=== PATIENT | female | born 1970 | race Caucasian/White ===

== ENCOUNTER 2022-01-26 00:48 | Emergency (ER) | payer BC ==
[2022-01-26] MEDS ORDERED: Metoprolol Tartrate 5 MG/5 ML SDV IVPUSH ONE (02:17)
[2022-01-26 02:36] LABS: ANION GAP 13.7 mEq/L (7-13)
== END 2022-01-26 03:37 | disposition home or self-care (01) ==
LOC: DL.ED 00:48
DX: F41.9 Anxiety disorder, unspecified (principal); I10 Essential (primary) hypertension; Z79.899 Other long term (current) drug therapy; Z87.891 Personal history of nicotine dependence
CPT/HCPCS: 36415; 80053; 84484; 85025; 93005; 93010; 96374; 99283; 99283-25; J3490

== ENCOUNTER 2023-06-17 23:52 | Emergency (ER) | payer BC ==
[2023-06-18 00:48] LABS: BASOPHILS PERCENT AUTO 0.5 % (0.0-1.0); EOSINOPHILS PERCENT AUTO 2.3 % (1.0-3.0); HEMOGLOBIN 11.1 g/dL (12.0-16.0); LYMPHOCYTES PERCENT AUTO 16.3 % (20.5-50.1); MEAN CORPUSCULAR HEMOGLOBIN 31.2 pg (27.0-34.0); MEAN CORPUSCULAR HGB CONC 33.6 g/dL (33.0-35.0); MEAN CORPUSCULAR VOLUME 92.7 fL (80-100); MONOCYTES PERCENT AUTO 4.6 % (2-8); NEUTROPHILS PERCENT AUTO 76.3 % (42.2-75.2); PLATELET COUNT,PLT 258 10^3/uL (150-450); RED BLOOD CELL COUNT 3.56 10^6/uL (4.2-5.4); WHITE BLOOD CELL COUNT,WBC 10.8 10^3/uL (5.0-10.0)
[2023-06-18] MEDS: Sodium Chloride 0.9% 10 ML Syringe FLUSH PRN (01:01)
[2023-06-18] MEDS: Pantoprazole 40 MG Vial IVPUSH ONE ×2 (01:01→03:42)
[2023-06-18 01:07] LABS: A/G RATIO 1.2; ALBUMIN 3.7 g/dL (3.4-5.0); ANION GAP 17.3 mEq/L (7-13); BILIRUBIN TOTAL 0.2 mg/dL (0.2-1.0); BUN/CREATININE RATIO 20.9 (No establ ref range); CALCIUM 8.3 mg/dL (8.5-10.1); CREATININE 1.15 mg/dL (0.55-1.02); EST CRCL DRUG DOSING (CG) 53.75 mL/min; POTASSIUM,K 4.3 mmol/L (3.5-5.1); PROTEIN TOTAL,TP 6.8 g/dL (6.4-8.2)
[2023-06-18 01:51] LABS: PERCENT FE SATURATION 11.1 % (20.0-50.0)
[2023-06-18] MEDS ORDERED: hydrALAZINE 20 MG/ML SDV IVPUSH ONE (02:53)
[2023-06-18] MEDS: Sodium Chloride 0.9% 1,000 ML IV ONE (03:00)
== END 2023-06-18 04:01 ==
LOC: DL.ED 23:52
DX: K92.2 Gastrointestinal hemorrhage, unspecified (principal); D50.9 Iron deficiency anemia, unspecified; D62 Acute posthemorrhagic anemia; I16.0 Hypertensive urgency; I10 Essential (primary) hypertension; Z86.16 Personal history of COVID-19; Z79.899 Other long term (current) drug therapy
CPT/HCPCS: 36415; 80053; 82272; 82728; 83540; 83550; 85025; 86850; 86900; 86901; 96361; 96374; 96376; 99284; 99285-25; C9113; J3490; J7030